=== PATIENT | female | born 1945 | race Caucasian/White ===

== ENCOUNTER 2018-06-24 10:25 | Emergency (ER) | payer MEDICARE, OTHER ==
[~2018-06-24] VITALS: Ht 152.4 cm; Wt 104.3 kg
--- NOTE | ~2018-06-24 | EKG ---
[place], [place] ELECTROCARDIOGRAM REPORT NAME: CHUY GARCIA UNIT #: [id number] ROOM: DOCTOR: KRISTIN DRAFT REPORT BIRTHDATE: [birth year] [facility] Test Date: 2018-06-24 Test Time: 11:06:39 Pat Name: CHUY GARCIA Department: Room: Gender: F [employer]: : 1945 Requested By: NIVIA TY Order Number: [id number] Reading MD: Rio Cobos MD Measurements Intervals [place] Rate: 98 P: 30 IA: 140 QRS: 48 QRSD: 78 T: 31 QT: 326 QTc: 417 Interpretive Statements Sinus rhythm Abnormal R-wave progression, early transition Borderline T abnormalities, anterior leads Baseline wander in lead(s) V3 Electronically Signed On 06-24-2018 21:37:59 PDT by Rio Cobos MD CM:EKGRPT:ELECTROCARDIOGRAM REPORT 1106 NIVIA FOSTER DRAFT REPORT NIVIA TY MD
[~2018-06-24 10:25] MED LIST: AUGMENTIN 875875 MG PO; BAYER ASPIRIN R81 MG PO; DITROPAN5 MG PO; FERRO SEQUEL PO; LISINOPRIL5 MG PO; MASON NATURAL2000 IU PO; METFORMIN1000 MG PO; METFORMIN500 MG PO; OMEGA-31000 MG PO; PRILOSEC20 MG PO; TOVIAZ4 MG PO
[2018-06-24 11:39] LABS: BASO % 0.4 % (0.0-1.0); EOS % 0.2 % (1.0-4.0); HEMATOCRIT 25.7 % (37.0-47.0); HEMOGLOBIN 8.1 g/dl (12.0-16.0); LYMPH # 1.3 10*3/uL (1.3-4.4); MEAN CELL VOLUME 92.8 fl (81.0-99.0); MEAN CORPUSCULAR HGB 29.2 pg (27.0-31.0); MEAN CORPUSCULAR HGB CONC 31.5 g/dl (33.0-37.0); MEAN PLATELET VOLUME 9.9 fl (9.6-12.3); MONO # 0.5 10*3/uL (0.1-1.0); MONO % 4.9 % (3.0-9.0); NEUT # 8.3 10*3/uL (2.3-7.9); PLATELET COUNT AUTOMATED 188 10*3/uL (130-400); RED BLOOD COUNT 2.77 10*6/uL (4.10-5.10); RED CELL DISTRI WIDTH 13.6 % (0-14.5); WHITE BLOOD COUNT 10.2 10*3/uL (4.8-10.8)
[2018-06-24 11:59] LABS: ACT PARTIAL THROMBO TIME 20.5 SECONDS (20.8-31.5)
[2018-06-24 12:04] LABS: ALBUMIN 2.9 gm/dl (3.1-4.5); ALKALINE PHOSPHATASE 73 U/L (45-117); BUN 18 mg/dl (7-24); CHLORIDE 104 mmol/L (98-107); CREATININE 0.93 mg/dL (0.55-1.02); POTASSIUM 3.8 mmol/L (3.5-5.1); SGOT/AST 6 IU/L (3-35); SGPT/ALT 11 U/L (12-78); SODIUM 140 mmol/L (136-145); TOTAL PROTEIN 5.7 gm/dL (6.4-8.2)
[2018-06-24 12:08] LABS: TROPONIN I < 0.015 ng/ml (<0.045)
[2018-06-24] MEDS ORDERED: LIDEX 0.05% CRE15 GM T (12:10)
[2018-06-24 12:50] LABS: HEMATOCRIT 23.7 % (37.0-47.0); HEMOGLOBIN 7.7 g/dl (12.0-16.0)
== END 2018-06-24 13:20 | disposition short-term general hospital (02) ==
LOC: ED 10:25
PROVIDERS: Emergency Medicine
DX: R57.8 Other shock (principal); R91.1 Solitary pulmonary nodule; N93.9 Abnormal uterine and vaginal bleeding, unspecified; I10 Essential (primary) hypertension; E11.9 Type 2 diabetes mellitus without complications; Z88.8 Allergy status to other drugs, medicaments and biological substances; Z79.899 Other long term (current) drug therapy; Z79.82 Long term (current) use of aspirin

== ENCOUNTER → 2018-07-28 | Outpatient (CLI) | payer MEDICARE, OTHER ==
[~2018-07-28] MED LIST changes: +CENTRUM SILVER1 EAC1 PO; +COLACE100 MG PO; +COZAAR50 M1 PO; +ENOXAPARIN100 MG/1 M SC; +FEROSUL325 MG PO; +LIDEX 0.05% CRE15 GM T; +LOVENOX100 MG/1 M PO
== END | disposition home or self-care (01) ==
LOC: LAB 11:49
DX: R06.02 Shortness of breath (principal)

== ENCOUNTER 2018-09-04 11:40 | Emergency (ER) | payer MEDICARE, OTHER ==
[~2018-09-04] VITALS: Wt 99.8 kg
[2018-09-04 12:31] LABS: BASO % 0.6 % (0.0-1.0); EOS # 0.2 10*3/uL (0.0-0.4); EOS % 4.1 % (1.0-4.0); HEMATOCRIT 32.3 % (37.0-47.0); HEMOGLOBIN 10.5 g/dl (12.0-16.0); LYMPH % 22.3 % (27.0-41.0); MEAN CELL VOLUME 93.9 fl (81.0-99.0); MEAN CORPUSCULAR HGB 30.5 pg (27.0-31.0); MEAN CORPUSCULAR HGB CONC 32.5 g/dl (33.0-37.0); MEAN PLATELET VOLUME 9.2 fl (9.6-12.3); MONO # 0.4 10*3/uL (0.1-1.0); MONO % 7.5 % (3.0-9.0); NEUT % 64.9 % (47.0-73.0); PLATELET COUNT AUTOMATED 218 10*3/uL (130-400); RED BLOOD COUNT 3.44 10*6/uL (4.10-5.10); RED CELL DISTRI WIDTH 13.4 % (0-14.5); WHITE BLOOD COUNT 4.7 10*3/uL (4.8-10.8)
[2018-09-04 12:37] LABS: ACT PARTIAL THROMBO TIME 29.1 SECONDS (20.8-31.5)
[2018-09-04 12:43] LABS: ALBUMIN 2.8 gm/dl (3.1-4.5); ALKALINE PHOSPHATASE 83 U/L (45-117); BUN 11 mg/dl (7-24); CHLORIDE 109 mmol/L (98-107); POTASSIUM 3.6 mmol/L (3.5-5.1); SGOT/AST 14 IU/L (3-35); SGPT/ALT 18 U/L (12-78); SODIUM 143 mmol/L (136-145); TOTAL PROTEIN 6.4 gm/dL (6.4-8.2)
== END 2018-09-04 14:28 | disposition short-term general hospital (02) ==
LOC: ED 11:40
PROVIDERS: Physician Assistant
DX: N93.9 Abnormal uterine and vaginal bleeding, unspecified (principal); Z90.710 Acquired absence of both cervix and uterus; Z88.8 Allergy status to other drugs, medicaments and biological substances; Z79.899 Other long term (current) drug therapy; Z87.891 Personal history of nicotine dependence

== ENCOUNTER 2018-12-13 13:39 | Inpatient (IN) | payer MEDICARE, OTHER ==
[~2018-12-13] VITALS: Ht 149.8 cm; Wt 102.9 kg
[2018-12-13] VITALS (10 sets, daily range): BP systolic 102–128; BP diastolic 40–80
--- NOTE | ~2018-12-13 | EKG ---
[place], [place] ELECTROCARDIOGRAM REPORT NAME: CHUY GARCIA UNIT #: [id number] ROOM: 411 DOCTOR: KRISTIN DRAFT REPORT BIRTHDATE: [birth year] [facility] Test Date: 2018-12-13 Test Time: 14:25:42 Pat Name: CHUY GARCIA Department: ER Room: 411 Gender: F Manager Category: [place] : 1945 Requested By: SALO ZAYAS DNP Order Number: [id number] Reading MD: Charmaine Delong MD Measurements Intervals [place] Rate: 89 P: 32 NE: 141 QRS: 59 QRSD: 87 T: 38 QT: 350 QTc: 426 Interpretive Statements Sinus rhythm Minimal ST depression, inferior leads Baseline wander in lead(s) I,II,aVR Compared to ECG 07/28/2018 22:01:30 ST (T wave) deviation now present Electronically Signed On 12-14-2018 9:33:59 PST by Charmaine Delong MD CM:EKGRPT:ELECTROCARDIOGRAM REPORT [id number] SALO FOSTER DRAFT REPORT SALO ZAYAS DNP
[2018-12-13 14:50] LABS: BASO % 0.4 % (0.0-1.0); EOS % 0.4 % (1.0-4.0); HEMOGLOBIN 6.8 g/dl (12.0-16.0); LYMPH # 0.2 10*3/uL (1.3-4.4); LYMPH % 4.7 % (27.0-41.0); MEAN CELL VOLUME 96.1 fl (81.0-99.0); MEAN CORPUSCULAR HGB 29.7 pg (27.0-31.0); MEAN CORPUSCULAR HGB CONC 30.9 g/dl (33.0-37.0); MEAN PLATELET VOLUME 8.6 fl (9.6-12.3); MONO # 0.4 10*3/uL (0.1-1.0); MONO % 7.7 % (3.0-9.0); NEUT % 84.9 % (47.0-73.0); NUCLEATED RED BLOOD CELL 0.9 % (0.0-0.0); PLATELET COUNT AUTOMATED 207 10*3/uL (130-400); RED BLOOD COUNT 2.29 10*6/uL (4.10-5.10); RED CELL DISTRI WIDTH 17.3 % (0-14.5); WHITE BLOOD COUNT 4.7 10*3/uL (4.8-10.8)
[2018-12-13 15:11] LABS: ALBUMIN 2.4 gm/dl (3.1-4.5); ALKALINE PHOSPHATASE 74 U/L (45-117); BUN 7 mg/dl (7-24); CHLORIDE 105 mmol/L (98-107); CREATININE 0.86 mg/dL (0.55-1.02); POTASSIUM 3.3 mmol/L (3.5-5.1); SGOT/AST 9 IU/L (3-35); SGPT/ALT 14 U/L (12-78); SODIUM 140 mmol/L (136-145); TOTAL PROTEIN 5.9 gm/dL (6.4-8.2)
[2018-12-13 15:12] LABS: TROPONIN I 0.018 ng/ml (<0.045)
[2018-12-14] VITALS (10 sets, daily range): BP systolic 98–124; BP diastolic 44–65
[2018-12-14 02:39] LABS: HEMATOCRIT 23.1 % (37.0-47.0); HEMOGLOBIN 7.3 g/dl (12.0-16.0)
[2018-12-14 06:32] LABS: BASO % 0.6 % (0.0-1.0); EOS # 0.1 10*3/uL (0.0-0.4); EOS % 1.5 % (1.0-4.0); HEMATOCRIT 22.9 % (37.0-47.0); HEMOGLOBIN 7.1 g/dl (12.0-16.0); LYMPH # 0.3 10*3/uL (1.3-4.4); LYMPH % 6.7 % (27.0-41.0); MEAN CORPUSCULAR HGB 28.6 pg (27.0-31.0); MEAN PLATELET VOLUME 8.9 fl (9.6-12.3); MONO # 0.5 10*3/uL (0.1-1.0); MONO % 10.9 % (3.0-9.0); NEUT # 3.7 10*3/uL (2.3-7.9); NEUT % 78.8 % (47.0-73.0); NUCLEATED RED BLOOD CELL 0.9 % (0.0-0.0); PLATELET COUNT AUTOMATED 189 10*3/uL (130-400); RED BLOOD COUNT 2.48 10*6/uL (4.10-5.10); RED CELL DISTRI WIDTH 19.7 % (0-14.5); WHITE BLOOD COUNT 4.7 10*3/uL (4.8-10.8)
[2018-12-14 06:38] LABS: MEAN CELL VOLUME 92.3 fl (81.0-99.0)
[2018-12-14 06:49] LABS: ALBUMIN 2.2 gm/dl (3.1-4.5); CHLORIDE 107 mmol/L (98-107); CHOLESTEROL 108 mg/dL (<200); CREATININE 0.67 mg/dL (0.55-1.02); POTASSIUM 3.6 mmol/L (3.5-5.1); SGOT/AST 10 IU/L (3-35); SGPT/ALT 13 U/L (12-78); SODIUM 140 mmol/L (136-145)
[2018-12-14 06:56] LABS: ALKALINE PHOSPHATASE 66 U/L (45-117); BUN 7 mg/dl (7-24); FREE T4 1.34 ng/dl (0.76-1.46); HDL CHOLESTEROL 47 mg/dl (40-60); LDL CHOLESTEROL 46 mg/dL (9-159); PHOSPHOROUS 3.7 mg/dL (2.5-4.9); TOTAL PROTEIN 5.3 gm/dL (6.4-8.2); TRIGLYCERIDES 73 mg/dl (<150); VLDL CHOLESTEROL 15 mg/dL (6-40)
[2018-12-14 07:52] LABS: VITAMIN D, 25-HYDROXY 28.8 ng/mL (30-100)
[2018-12-14 16:28] LABS: HEMATOCRIT 28.3 % (37.0-47.0)
[2018-12-14] MEDS ORDERED: MUCINEX ER600 MG PO (17:10)
[2018-12-14] MEDS ORDERED: AVPAK AZITHROM250 M1 PO (17:11)
== END 2018-12-14 17:55 | disposition home or self-care (01) | DRG 377 ==
LOC: ED 13:39 → EDHOLD 18:01 → 4E 18:01
PROVIDERS: Family Medicine; Internal Medicine Nephrology; Nurse Practitioner Family; Student in an Organized Health Care Education/Training Program; ADMIT Internal Medicine
PROC: 30233N1 Transfusion of Nonautologous Red Blood Cells into Peripheral Vein, Percutaneous Approach (ICD-10-PCS; principal; 2018-12-13)
DX: K62.5 Hemorrhage of anus and rectum (principal); E43 Unspecified severe protein-calorie malnutrition; E87.2 Acidosis; D68.59 Other primary thrombophilia; Z68.42 Body mass index [BMI] 45.0-49.9, adult; D50.0 Iron deficiency anemia secondary to blood loss (chronic); I10 Essential (primary) hypertension; E11.9 Type 2 diabetes mellitus without complications; D72.810 Lymphocytopenia; J01.40 Acute pansinusitis, unspecified; J40 Bronchitis, not specified as acute or chronic; E87.6 Hypokalemia; C55 Malignant neoplasm of uterus, part unspecified; Z86.711 Personal history of pulmonary embolism; Z92.21 Personal history of antineoplastic chemotherapy; Z92.3 Personal history of irradiation; Z90.710 Acquired absence of both cervix and uterus; Z98.51 Tubal ligation status; Z87.891 Personal history of nicotine dependence; Z82.49 Family history of ischemic heart disease and other diseases of the circulatory system; Z80.42 Family history of malignant neoplasm of prostate; Z91.048 Other nonmedicinal substance allergy status; Z88.8 Allergy status to other drugs, medicaments and biological substances; Z79.899 Other long term (current) drug therapy

== ENCOUNTER → 2021-09-10 | Outpatient (CLI) | payer MEDICARE, OTHER ==
[~2021-09-10] MED LIST changes: +AVPAK AZITHROM250 M1 PO; +MUCINEX ER600 MG PO
== END | disposition home or self-care (01) ==
LOC: COVID19 16:29 → COVVAC 16:29
PROVIDERS: ATTEND Internal Medicine
DX: Z11.52 Encounter for screening for COVID-19 (principal)

== ENCOUNTER → 2023-02-23 | Day surgery (SDC) | payer MEDICARE, OTHER ==
[2023-02-19 15:32] LABS: BUN 14 mg/dl (9-23); CHLORIDE 105 mmol/L (98-107); POTASSIUM 3.7 mmol/L (3.4-5.1)
[~2023-02-23] VITALS: Ht 149.8 cm; Wt 99.8 kg
[~2023-02-23] MED LIST changes: +VALSARTAN80 MG PO
[2023-02-23 06:54] VITALS: BP 107/62
[2023-02-23 08:02] VITALS: BP 87/39
[2023-02-23 08:18] VITALS: BP 97/48
[2023-02-23 08:32] VITALS: BP 98/42
== END | disposition home or self-care (01) ==
LOC: SDC 02-19 13:15
PROVIDERS: ATTEND Orthopaedic Surgery
DX: G56.03 Carpal tunnel syndrome, bilateral upper limbs (principal); I10 Essential (primary) hypertension; E11.9 Type 2 diabetes mellitus without complications; J45.909 Unspecified asthma, uncomplicated; Z98.890 Other specified postprocedural states; Z90.710 Acquired absence of both cervix and uterus; Z88.8 Allergy status to other drugs, medicaments and biological substances